=== PATIENT | female | born 1975 | race Caucasian/White ===

== ENCOUNTER 2017-12-08 08:08 | Emergency (ER) | payer MEDICARE, OTHER, SELFPAY ==
[2017-12-08 08:11] VITALS: BP 148/9; PULSE 103; RESP 20; TEMP 36.9; O2SAT 98; BMI 22.6
--- NOTE | 2017-12-08 08:46 | XR_ITS ---
XR chest 2V Ordering Physician: Chris Ramirez MD Patient Age: 42 years: Female HISTORY: ITS.REASON: confusion hx of histoplasmosis. TECHNIQUE: PA and lateral chest COMPARISON :No prior chest studies CT abdomen the lung bases 2010 utilized FINDINGS No prior studies for comparison. The lungs are well expanded and clear with no active disease evident. No focal pneumonia. Heart normal size. [place] and mediastinal structures satisfactory. There is a small calcified granuloma towards the left lung base with small calcified hilar nodes which may reflect old granulomatous disease most likely histoplasmosis in the past but no discrete acute findings. Question very subtle density projected over the right second rib and likely related to the rib itself.. Also note a old healed fracture of the right clavicle just above this Final review question some perhaps some very subtle accentuated markings towards lingula most likely reflecting minor scarring and atelectasis & overlapping markings. No convincing pneumonia. Otherwise chest wall T-spine unremarkable IMPRESSION: Nothing definitely acute On final review question only some minor mild atelectasis and/or scarring towards ligula No convincing infiltrate
--- NOTE | 2017-12-08 08:46 | CT_ITS ---
CT head/brain wo con Ordering Physician: Chris Ramirez MD Patient Age: 42 years: Female HISTORY: ITS.REASON: confusion TECHNIQUE: RoutiRoutine CT head without contrast brain and bone windows performed and reviewed. COMPARISON :CT head May 2011 FINDINGS No acute intracranial findings. No hemorrhage. No mass. No subdural collection No significant change since previous CT head from 2010 [place] and white matter interface satisfactory. Ventricles and basal cisterns appear normal. Posterior fossa unremarkable The bone windows. Skull is intact. Minor mucosal thickening anterior ethmoid air cells on left, similar to 2011. Otherwise visualized portions of the sinuses clear. Mastoid air cells are well-developed and clear. . Areas of mild focal soft tissue thickening seen at the fore head scattered which may reflect the skin lesions described clinically. No associated findings otherwise CT IMPRESSION: No acute intracranial findings. Brain appears stable and within normal limits.
--- NOTE | 2017-12-08 08:48 | [facility].EDAMS ---
ED Disposition Clinical Impression: Skin ulcer, Insect bites, Opiate use, Drug abuse, Malabsorption, Hx of histoplasmosis, Infected insect bite Disposition: Home, Self-Care Condition on Discharge: Fair Instructions: DI for Skin Abscess Additional Instructions: 1- follow up with pcp on wound culture and gram stain. 2- start Bactrim and muporicin. 3- stop digging these sores and follow up with the senior mobile developer on the skin sores, culture until complete healing. 3-stop the use of opiates and observe for fever and confusion and to return if needed. Prescriptions: hydrOXYzine HCl [Hydroxyzine HCl] 25 mg PO Q8HP PRN #21 tab PRN Reason: Itching Mupirocin Calcium [Mupirocin 2% Cream 15gm] 1 applicatio TP Q12 #1 tube Sulfamethoxazole/Trimethoprim [Bactrim DS tablet] 1 tab PO BID #20 tab Referrals: Willi Servin MD [Staff Physician] - - Critical Care Critical Care Time: No Attestation: On 12/08/17, the high probability of a clinically significant, sudden or life threatening deterioration of the following system(s) required my full and direct attention, intervention and personal management. The time I documented below is in addition to time spent performing reported procedures but includes the following listed in this critical care notation. Medical Decision Making - Medical Records Medical records reviewed: Yes: I reviewed the patient's medical records. - John Inquiry Pt receiving controlled substance: No John was queried for this patient: No Vital Signs: 12/08/17 08:11 Temperature 98.5 F Temperature Source Oral Pulse Rate [Right Brachial] 103 H Respiratory Rate 20 Blood Pressure [Right Arm] 148/9 Blood Pressure Mean [Right Arm] 55 Blood Pressure Source [Right Arm] Automatic Cuff Blood Pressure Position [Right Arm] Sitting 02 Sat by Pulse Oximetry 98 Oxygen Delivery Method Room Air - Lab Data Lab Results 12/08/17 08:45: Urine Color Yellow, Urine Appearance Cloudy, Urine pH 6.0, Ur Specific [place] >= 1.030, Urine Protein Negative, Urine Glucose (UA) Negative, Urine Ketones Negative, Urine Blood Negative, Urine Nitrate Negative, Urine Bilirubin Negative, Urine Urobilinogen 0.2, Ur Leukocyte Esterase Trace, Urine WBC Occasional, Ur Squamous Epith Cells 3-5, Urine Bacteria 2+, Urine Mucus Trace 12/08/17 08:45: WBC 6.7, RBC 4.68, Hgb 12.3, Hct 41.5, MCV 88.8, MCH 26.3 L, MCHC 29.7 L, RDW 14.0, Plt Count 260, MPV 7.1 L, Neut % (Auto) 60.3, Lymph % (Auto) 28.0, [place] % (Auto) 7.4, Eos % (Auto) 3.5, Baso % (Auto) 0.9, Neut # (Auto) 4.0, Lymph # (Auto) 1.9, [place] # (Auto) 0.5, Eos # (Auto) 0.2, Baso # (Auto) 0.1 12/08/17 08:45: Sodium 140, Potassium 4.1, Chloride 104, Carbon Dioxide 30, Anion Gap 10.1, BUN 16, Creatinine 0.66, Estimated Creat Clear 97, Estimated GFR 99, Est GFR ( Amer) 120, Glucose 90, Calcium 8.5, Total Bilirubin 0.2, AST 16, ALT 20, Alkaline Phosphatase 98, Total Protein 7.5, Albumin 3.6, Globulin 3.9 H, Albumin/Globulin Ratio 0.9 L 12/08/17 08:45: Lactic Acid 0.9 12/08/17 08:45: Troponin I < 0.02 12/08/17 08:47: Urine Opiates Screen Positive H, Ur Barbituates Screen Negative, Ur Phencyclidine Scrn Negative, Ur Amphetamines Screen Negative, U Methamphetamines Scrn Negative, U Benzodiazepines Scrn Negative, Urine Cocaine Screen Negative, U Marijuana (THC) Screen Negative Result diagrams: 12/08/17 08:45 12/08/17 08:45 Orders (Tests/Meds): ED MEDICATIONS Generic Name Dose Route Start Last Admin Trade Name Freq PRN Reason Stop Dose Admin Sodium Chloride 1,000 mls @ 999 mls/hr 12/08/17 10:00 12/08/17 09:51 Sod Chlor 0.9% 1000ml Bag IV 12/08/17 11:00 999 mls/hr .Q1H1M JEFF Administration ORDERS Category Date Time Status CT head/brain wo con Stat Cat Scan 12/08/17 08:46 Taken Blood Culture Stat Micro 12/08/17 09:05 Ordered Urine Culture Stat Micro 12/08/17 08:45 Received Wound Culture and Gram Stain Stat Micro 12/08/17 09:30 Rece
--- NOTE | 2017-12-08 08:52 | ED_ITS ---
ED Disposition Clinical Impression: Skin ulcer, Insect bites, Opiate use, Drug abuse, Malabsorption, Hx of histoplasmosis, Infected insect bite Disposition: Home, Self-Care Condition on Discharge: Fair Instructions: DI for Skin Abscess Additional Instructions: 1- follow up with pcp on wound culture and gram stain. 2- start Bactrim and muporicin. 3- stop digging these sores and follow up with the shoe sprayer on the skin sores, culture until complete healing. 3-stop the use of opiates and observe for fever and confusion and to return if needed. Prescriptions: hydrOXYzine HCl [Hydroxyzine HCl] 25 mg PO Q8HP PRN #21 tab PRN Reason: Itching Mupirocin Calcium [Mupirocin 2% Cream 15gm] 1 applicatio TP Q12 #1 tube Sulfamethoxazole/Trimethoprim [Bactrim DS tablet] 1 tab PO BID #20 tab Referrals: Willi Servin MD [Staff Physician] - - Critical Care Critical Care Time: No Attestation: On 12/08/17, the high probability of a clinically significant, sudden or life threatening deterioration of the following system(s) required my full and direct attention, intervention and personal management. The time I documented below is in addition to time spent performing reported procedures but includes the following listed in this critical care notation. Medical Decision Making - Medical Records Medical records reviewed: Yes: I reviewed the patient's medical records. - John Inquiry Pt receiving controlled substance: No John was queried for this patient: No Vital Signs: 12/08/17 08:11 Temperature 98.5 F Temperature Source Oral Pulse Rate [Right Brachial] 103 H Respiratory Rate 20 Blood Pressure [Right Arm] 148/9 Blood Pressure Mean [Right Arm] 55 Blood Pressure Source [Right Arm] Automatic Cuff Blood Pressure Position [Right Arm] Sitting 02 Sat by Pulse Oximetry 98 Oxygen Delivery Method Room Air - Lab Data Lab Results 12/08/17 08:45: Urine Color Yellow, Urine Appearance Cloudy, Urine pH 6.0, Ur Specific [place] >= 1.030, Urine Protein Negative, Urine Glucose (UA) Negative, Urine Ketones Negative, Urine Blood Negative, Urine Nitrate Negative, Urine Bilirubin Negative, Urine Urobilinogen 0.2, Ur Leukocyte Esterase Trace, Urine WBC Occasional, Ur Squamous Epith Cells 3-5, Urine Bacteria 2+, Urine Mucus Trace 12/08/17 08:45: WBC 6.7, RBC 4.68, Hgb 12.3, Hct 41.5, MCV 88.8, MCH 26.3 L, MCHC 29.7 L, RDW 14.0, Plt Count 260, MPV 7.1 L, Neut % (Auto) 60.3, Lymph % ( Auto) 28.0, [place] % (Auto) 7.4, Eos % (Auto) 3.5, Baso % (Auto) 0.9, Neut # (Auto ) 4.0, Lymph # (Auto) 1.9, [place] # (Auto) 0.5, Eos # (Auto) 0.2, Baso # (Auto) 0.1 12/08/17 08:45: Sodium 140, Potassium 4.1, Chloride 104, Carbon Dioxide 30, Anion Gap 10.1, BUN 16, Creatinine 0.66, Estimated Creat Clear 97, Estimated GFR 99, Est GFR ( Amer) 120, Glucose 90, Calcium 8.5, Total Bilirubin 0.2 , AST 16, ALT 20, Alkaline Phosphatase 98, Total Protein 7.5, Albumin 3.6, Globulin 3.9 H, Albumin/Globulin Ratio 0.9 L 12/08/17 08:45: Lactic Acid 0.9 12/08/17 08:45: Troponin I < 0.02 12/08/17 08:47: Urine Opiates Screen Positive H, Ur Barbituates Screen Negative , Ur Phencyclidine Scrn Negative, Ur Amphetamines Screen Negative, U Methamphetamines Scrn Negative, U Benzodiazepines Scrn Negative, Urine Cocaine Screen Negative, U Marijuana (THC) Screen Negative Result diagrams: 12/08/17 08:45 12/08/17 08:45 Orders (Tests/Meds): ED MEDICATIONS Generic Name Dose Route Start Last Admin
[2017-12-08 08:57] LABS: Microscopic, Urine URINE MICROSCOPIC (MICROSCOPIC)
[2017-12-08 08:58] LABS: Basophils # 0.1 K/mm3 (0-0.2); Basophils % 0.9 % (0.1-2.0); Eosinophils # 0.2 K/mm3 (0.0-0.4); Eosinophils % 3.5 % (0.1-12.0); Hematocrit 41.5 % (37.0-47.0); Hemoglobin 12.3 g/dL (12.2-16.2); Lymphocytes # 1.9 K/mm3 (0.7-4.5); Mean Corpuscular HGB Conc 29.7 g/dL (31.8-35.4); Mean Corpuscular Hemoglobin 26.3 pg (27.0-31.2); Mean Corpuscular Volume 88.8 fl (81-99); Mean Platelet Volume 7.1 fl (7.4-10.4); Monocytes # 0.5 K/mm3 (0.1-1.0); Monocytes % 7.4 % (1.7-9.3); Neutrophils % 60.3 % (37.0-80.0); Platelet Count 260 K/mm3 (142-424); Red Blood Count 4.68 M/mm3 (4.20-5.40); White Blood Count 6.7 K/mm3 (4.8-10.8)
[2017-12-08 09:08] LABS: Amphetamine/Metha Screen,Urine Negative ng/mL (<1000); Barbiturates Screen,Urine Negative ng/mL (<200); Benzodiazepines Screen,Urine Negative ng/mL (200); Cannabinoid Screen,Urine Negative ng/mL (<50); Cocaine Screen,Urine Negative ng/g (<300); Methadone Screen,Urine Negative ng/mL (<300); Opiate Screen,Urine Positive ng/mL (<300); Phencyclidine Screen,Urine Negative ng/mL (<25)
[2017-12-08 09:12] LABS: Alanine Aminotransferase 20 U/L (12-78); Albumin Level 3.6 gm/dL (3.4-5.0); Albumin/Globulin Ratio 0.9 (1.1-1.8); Alkaline Phosphatase 98 U/L (46-116); Anion Gap 10.1 mEq/L (5-15); Appearance,Urine CLOUDY (Clear); Aspartate Amino Transferase 16 U/L (15-37); Bilirubin,Total 0.2 mg/dL (0.2-1.0); Bilirubin,Urine Negative (Negative); Blood Urea Nitrogen 16 mg/dL (7-18); Blood, Urine Negative (Negative); Calcium 8.5 mg/dL (8.5-10.1); Carbon Dioxide 30 mmol/L (21.0-32.0); Chloride 104 mmol/L (98-107); Color,Urine YELLOW (Yellow); Creatinine Clearance Estimated 97 mL/min (0-300); Creatinine,Serum 0.66 mg/dL (0.55-1.02); Estimated Glomerular Filt Rate 99 ml/min (>60); GFR (African American) 120 ML/MIN (>60); Globulin 3.9 gm/dl (1.3-3.2); Glucose 90 mg/dL (74-106); Glucose,Urine (UA) Negative (Negative); Ketones,Urine Negative (Negative); Leukocyte Esterase,Urine TRACE (Negative); Nitrate,Urine Negative (Negative); Potassium 4.1 mmoL/L (3.5-5.1); Protein,Urine Negative (Negative); Sodium 140 mmol/L (136-145); Specific Gravity, Urine >= 1.030 (1.005-1.030); Total Protein,Serum 7.5 gm/dL (6.4-8.2); Urobilinogen,Urine 0.2 EU/dl (0.2)
[2017-12-08 09:15] LABS: Lactic Acid 0.9 mmol/L (0.4-2.0)
[2017-12-08 09:32] LABS: Mucus,Urine Trace /lpf; WBC,Urine Occasional #/hpf (0-3)
[2017-12-08 09:33] LABS: Bacteria,Urine 2+ /lpf
[2017-12-08 09:45] LABS: Troponin I < 0.02 ng/ml (0.00-0.06)
[2017-12-08 10:28] VITALS: BP 123/88; PULSE 79; RESP 16; TEMP 36.8; O2SAT 100
== END 2017-12-08 10:29 | disposition home or self-care (01) ==
PROVIDERS: Emergency Provider Emergency Medicine
DX: S00.86XA Insect bite (nonvenomous) of other part of head, initial encounter (principal); S10.96XA Insect bite of unspecified part of neck, initial encounter; W57.XXXA Bitten or stung by nonvenomous insect and other nonvenomous arthropods, initial encounter; F11.10 Opioid abuse, uncomplicated; R82.90 Unspecified abnormal findings in urine; K90.9 Intestinal malabsorption, unspecified
CPT/HCPCS: 70450; 71046; 80053; 80305; 81001; 83605; 84484; 85025; 87040; 87070; 87077; 87086; 87186; 87205; 96365; 99284